=== PATIENT | female | born 1990 | race Caucasian/White ===

== ENCOUNTER 2017-01-16 13:23 | Emergency (ER) | payer BC ==
[~2017-01-16] VITALS: Ht 162.6 cm; Wt 81.3 kg
[~2017-01-16 13:23] MED LIST: FEOSOL325 MG PO; Motrin PO; NATALCARE RX1 TABLE1 PO; Percocet 5/325,Endoc PO
[2017-01-16 14:39] LABS: HEMATOCRIT 38.7 % (36.0-46.0); MCV 81.1 FL (83-99); MEAN PLAT.VOLUME 10.5 uM^3 (9.5-12.4); PLATELET COUNT 336 K/uL (156-360); RBC DIS.WIDTH-CV 14.7 % (11.8-14.6); RBC DIS.WIDTH-SD 43.8 % (39-53); RED BLOOD COUNT 4.77 M/uL (3.80-5.20); WHITE BLOOD COUNT 7.8 K/uL (4.1-10.2)
[2017-01-16 14:50] LABS: CHLORIDE 106 mEq/L (99-109); POTASSIUM 4.4 mEq/L (3.7-5.4); SODIUM 140 mEq/L (136-147)
[2017-01-16 14:52] LABS: GLUCOSE 97 mg/dL (70-99)
[2017-01-16 14:53] LABS: ANION GAP 9 MEQ/L (2-14)
[2017-01-16 14:54] LABS: TOTAL BILIRUBIN 0.5 mg/dL (0.0-1.0)
[2017-01-16 14:55] LABS: ALKALINE PHOSPHATASE 65 IU/L (3-129); GFR ESTIMATE (CALCULATED) > 59 mL/min/
[2017-01-16 14:57] LABS: UREA NITROGEN (BUN) 7 mg/dL (9-23)
[2017-01-16 15:05] LABS: QUANTITATIVE HCG < 4.0 MIU/ML
[2017-01-16 16:22] LABS: BILIRUBIN NEGATIVE; BLOOD NEGATIVE; COLOR YELLOW ((YELLOW)); GLUCOSE (STRIP) NEGATIVE; KETONES 5; LEUKOCYTES NEGATIVE; NITRITE NEGATIVE; PROTEIN (STRIP) 30; SPECIFIC GRAVITY 1.024 (1.000-1.030); UCUL ADDED? NO; UROBILINOGEN 0.2 MG/DL (0.2-1.0)
[2017-01-16 16:44] LABS: ADD MIUA? YES
[2017-01-16 16:57] LABS: BACTERIA RARE /HPF; EPITHELIAL CELLS RARE /HPF; MUCUS 3+ /LPF; RED BLOOD CELLS 0-5 /HPF (0-5); WHITE BLOOD CELLS 0-5 /HPF (0-5)
[2017-01-16] MEDS ORDERED: CIPRO500 MG PO (20:52)
[2017-01-16] MEDS ORDERED: FLAGYL500 MG PO (20:52)
[2017-01-16 21:20] VITALS: BP 128/64
== END 2017-01-16 21:21 | disposition home or self-care (01) ==
LOC: EME 13:23
DX: K52.9 Noninfective gastroenteritis and colitis, unspecified (principal); R10.33 Periumbilical pain; R10.31 Right lower quadrant pain
CPT/HCPCS: 74177; 80053; 81003; 84702; 85027; 99281; 99285; J2405; J7040